=== PATIENT | female | born 1960 | race African-American/Black ===

== ENCOUNTER 2024-03-26 10:58 | Day surgery (SDC) | payer BC ==
[2024-03-26 12:27] LABS: #Basophils Less than 0.03 10x3/uL (0.0-0.2); %Basophils 0.4 % (0.0-1.0); %Eosinophils 0.8 % (0.0-10.0); %Lymphocytes 25.8 % (21.0-51.0); %Neutrophils 56.8 % (42.0-75.0); Hemoglobin 13.5 g/dL (12.0-16.0); Mean Corpuscular HGB CONC 32.1 g/dL (32.0-36.0); Mean Corpuscular Hemoglobin 31.3 pg (27.0-31.0); Mean Corpuscular Volume 97.2 fL (78.0-98.0); Platelet Count 185 10x3/uL (130-400); RBC Distribution Width 13.4 % (11.5-14.5); Red Blood Cell (RBC) Count 4.32 mill/uL (4.20-5.40)
[2024-03-26 12:48] LABS: Anion Gap 14 mmol/L (10-20); BUN (Urea Nitrogen) 7 mg/dL (9.8-20.1); Calc. Creatinine Clearance 0 mL/min (70-130); Carbon Dioxide 27 mmol/L (23-31); Chloride 106 mmol/L (98-107); Potassium 4.2 mmol/L (3.5-5.1); Sodium 143 mmol/L (136-145)
[2024-03-26 12:49] LABS: Calcium 9.7 mg/dL (7.8-10.44); Estimated GFR 79; Glucose 106 mg/dL (80-115)
[2024-03-26] MEDS ORDERED: PROPOFOL 20 ML ONE ×2 (13:01→14:35)
[2024-03-26] MEDS ORDERED: EPINEPHrine 1 MG/ML VIAL ONE (13:27)
[2024-03-26] MEDS ORDERED: Bupivacaine 0.25% HCL 30 ML VIAL ONE (13:28)
[2024-03-26] MEDS ORDERED: Lidocaine 2% PF 5 ML VIAL ONE ×2 (13:28→13:32)
[2024-03-26] MEDS ORDERED: CEFAZOLIN 2 GM VIAL ONE (13:36)
[2024-03-26] MEDS ORDERED: fentaNYL PF 100 MCG/2 ML SYRINGE ONE (14:04)
[2024-03-26] MEDS ORDERED: PHENYLEPHRINE-NS 100 MCG/ML 10 ML SYRINGE ONE (14:27)
[2024-03-26] MEDS ORDERED: Ketorolac Tromethamine 30 MG (1 mL) VIAL ONE (14:27)
[2024-03-26] MEDS ORDERED: Dexamethasone 20 MG/5 ML VIAL ONE (14:35)
[2024-03-26] MEDS ORDERED: Ondansetron PF 4 MG/2 ML Vial ONE (14:35)
[2024-03-26] MEDS ORDERED: fentaNYL 50 mcg/mL 1 mL Vial ONE (15:04)
== END 2024-03-26 16:37 | disposition home or self-care (01) ==
LOC: SDC 10:58
PROVIDERS: ATTEND Surgery
PROC: 0JH63WZ Insertion of Totally Implantable Vascular Access Device into Chest Subcutaneous Tissue and Fascia, Percutaneous Approach (ICD-10-PCS; principal; 2024-03-26)
DX: C78.5 Secondary malignant neoplasm of large intestine and rectum (principal); C34.90 Malignant neoplasm of unspecified part of unspecified bronchus or lung; F41.9 Anxiety disorder, unspecified
CPT/HCPCS: 71045; 80048; 85025; C1788; J0171; J0665; J1100; J1642; J1885; J2405; J2704; J3010

== ENCOUNTER 2024-04-29 15:10 | Emergency (ER) | payer BC ==
[2024-04-29] MEDS ORDERED: Ondansetron PF 4 MG/2 ML Vial ONE (16:27)
[2024-04-29 16:32] LABS: #Basophils Less than 0.03 10x3/uL (0.0-0.2); #Eosinophils Less than 0.03 10x3/uL (0.0-0.7); %Basophils 0.6 % (0.0-1.0); %Eosinophils 0.6 % (0.0-10.0); %Lymphocytes 32.7 % (21.0-51.0); %Monocytes 6.8 % (0.0-10.0); %Neutrophils 58.1 % (42.0-75.0); Hematocrit 38.9 % (36.0-47.0); Hemoglobin 13.2 g/dL (12.0-16.0); Mean Corpuscular HGB CONC 33.9 g/dL (32.0-36.0); Mean Corpuscular Hemoglobin 30.7 pg (27.0-31.0); Mean Corpuscular Volume 90.5 fL (78.0-98.0); Platelet Count 130 10x3/uL (130-400); RBC Distribution Width 13.9 % (11.5-14.5)
[2024-04-29 16:37] LABS: INR-International Normal Ratio 1.1; PTT 27.5 sec (22.9-36.1); Prothrombin Time 14.6 sec (12.0-14.7)
[2024-04-29 16:47] LABS: ALT (SGPT) 17 U/L (8-55); AST (SGOT) 23 U/L (5-34); Albumin 3.4 g/dL (3.4-4.8); Alkaline Phosphatase 96 U/L (40-110); Anion Gap 15 mmol/L (10-20); BUN (Urea Nitrogen) 9 mg/dL (9.8-20.1); Bilirubin, Total 0.6 mg/dL (0.2-1.2); Calc. Creatinine Clearance 0 mL/min (70-130); Calcium 9.1 mg/dL (7.8-10.44); Carbon Dioxide 24 mmol/L (23-31); Chloride 105 mmol/L (98-107); Estimated GFR 81; Globulin 3.3 g/dL (2.4-3.5); Glucose 112 mg/dL (80-115); Potassium 4.2 mmol/L (3.5-5.1); Protein, Total 6.7 g/dL (5.8-8.1); Sodium 140 mmol/L (136-145)
[2024-04-29] MEDS ORDERED: Lidocaine/Transparent Dressing 1 EACH KIT ONE (16:50)
[2024-04-29] MEDS ORDERED: Apixaban 5 MG TAB ONE (17:33)
== END 2024-04-29 17:41 | disposition home or self-care (01) ==
LOC: ERS 15:10
DX: I82.412 Acute embolism and thrombosis of left femoral vein (principal); I82.432 Acute embolism and thrombosis of left popliteal vein; I82.492 Acute embolism and thrombosis of other specified deep vein of left lower extremity
CPT/HCPCS: 36415; 80053; 85025; 85610; 85730; J2405

== ENCOUNTER 2024-09-16 09:02 | Outpatient (CLI) | payer BC | END 2024-09-16 09:03 | disposition home or self-care (01) | LOC: ULT 09:02 | PROVIDERS: ATTEND Internal Medicine | DX: C18.6 Malignant neoplasm of descending colon (principal); N85.2 Hypertrophy of uterus; D25.9 Leiomyoma of uterus, unspecified | CPT/HCPCS: 76856; 93976 ==

== ENCOUNTER 2025-01-06 12:06 | Inpatient (IN) | payer MEDICARE ==
[2025-01-06 13:28] LABS: #Basophils Less than 0.03 10x3/uL (0.0-0.2); #Eosinophils Less than 0.03 10x3/uL (0.0-0.7); #Monocytes 0.24 10x3/uL (0.11-0.59); #Neutrophils 3.11 10x3/uL (1.40-6.50); %Basophils 0.3 % (0.0-1.0); %Eosinophils 0.2 % (0.0-10.0); %Lymphocytes 42.4 % (21.0-51.0); %Monocytes 4.0 % (0.0-10.0); %Neutrophils 52.3 % (42.0-75.0); Hematocrit 38.0 % (36.0-47.0); Hemoglobin 12.1 g/dL (12.0-16.0); Mean Corpuscular Hemoglobin 31.5 pg (27.0-31.0); Mean Corpuscular Volume 99.0 fL (78.0-98.0); Platelet Count 97 10x3/uL (130-400); Red Blood Cell (RBC) Count 3.84 mill/uL (4.20-5.40); White Blood Cell (WBC) Count 5.95 10x3/uL (4.8-10.8)
[2025-01-06 13:33] LABS: ALT (SGPT) 12 U/L (Less than 34); AST (SGOT) 27 U/L (11-34); Albumin 3.1 g/dL (3.1-4.5); Alkaline Phosphatase 80 U/L (40-110); Anion Gap 17 mmol/L (10-20); BUN (Urea Nitrogen) 15 mg/dL (9.8-20.1); Bilirubin, Total 1.4 mg/dL (0.3-1.2); Calc. Creatinine Clearance 0 mL/min (70-130); Calcium 9.1 mg/dL (7.8-10.44); Carbon Dioxide 21 mmol/L (23-31); Chloride 107 mmol/L (98-107); Globulin 2.9 g/dL (2.4-3.5); Glucose 155 mg/dL (80-115); Magnesium 2.1 mg/dL (1.6-2.6); Potassium 3.6 mmol/L (3.5-5.1); Sodium 141 mmol/L (136-145)
[2025-01-06 14:28] LABS: Anisocytosis SLIGHT = 6-15 cells HPF (0-5); Macrocytosis MODERATE=16-30 cells HPF (0-5); Ovalocytes SLIGHT = 2-5 cells HPF (0-1); Platelet Adequacy Comment Platelets Decreased; Polychromasia SLIGHT = 2-3 cells HPF (0-2)
[2025-01-06 14:58] LABS: INR-International Normal Ratio 1.2; Prothrombin Time 14.9 sec (12.0-14.7)
[2025-01-06 15:00] LABS: PTT 21.6 sec (22.9-36.1)
[2025-01-06] MEDS ORDERED: Calcium Carbonate 500 MG ChewTAB PO PRN (15:52)
[2025-01-06] MEDS ORDERED: Senokot S 8.6-50 MG TAB PO PRN (15:52)
[2025-01-06] MEDS ORDERED: Ondansetron PF 4 MG/2 ML Vial IVP PRN (15:52)
[2025-01-06] MEDS ORDERED: Acetaminophen 325 MG TAB PO PRN (15:52)
[2025-01-06] MEDS ORDERED: Electrolyte Replacement Protocol 1 EACH FS SCH (16:00)
[2025-01-06] MEDS: CEFAZOLIN IVPB SCH (16:04)
[2025-01-06] MEDS: ADMIXTURE FEE IVPB SCH (16:04)
[2025-01-06] MEDS: SODIUM CHLORIDE IVPB SCH (16:04)
[2025-01-06] MEDS: Gabapentin 300 MG CAP PO SCH (21:03)
[2025-01-07 02:08] VITALS: BMI 35.7
[2025-01-07 05:41] LABS: #Basophils Less than 0.03 10x3/uL (0.0-0.2); #Eosinophils Less than 0.03 10x3/uL (0.0-0.7); #Monocytes 0.12 10x3/uL (0.11-0.59); #Neutrophils 2.07 10x3/uL (1.40-6.50); %Basophils 0.2 % (0.0-1.0); %Eosinophils 0.2 % (0.0-10.0); %Lymphocytes 44.8 % (21.0-51.0); %Monocytes 3.0 % (0.0-10.0); %Neutrophils 51.6 % (42.0-75.0); Hematocrit 33.1 % (36.0-47.0); Hemoglobin 10.6 g/dL (12.0-16.0); Mean Corpuscular Hemoglobin 31.9 pg (27.0-31.0); Mean Corpuscular Volume 99.7 fL (78.0-98.0); Platelet Count 119 10x3/uL (130-400); Red Blood Cell (RBC) Count 3.32 mill/uL (4.20-5.40); White Blood Cell (WBC) Count 4.02 10x3/uL (4.8-10.8)
[2025-01-07 05:52] LABS: ALT (SGPT) 13 U/L (Less than 34); AST (SGOT) 21 U/L (11-34); Albumin 3.1 g/dL (3.1-4.5); Alkaline Phosphatase 74 U/L (40-110); Anion Gap 9 mmol/L (10-20); BUN (Urea Nitrogen) 14 mg/dL (9.8-20.1); Bilirubin, Total 1.3 mg/dL (0.3-1.2); Calc. Creatinine Clearance 105 mL/min (70-130); Calcium 9.0 mg/dL (7.8-10.44); Carbon Dioxide 27 mmol/L (23-31); Chloride 107 mmol/L (98-107); Globulin 2.6 g/dL (2.4-3.5); Glucose 108 mg/dL (80-115); Magnesium 2.0 mg/dL (1.6-2.6); Potassium 4.2 mmol/L (3.5-5.1); Sodium 139 mmol/L (136-145)
[2025-01-07] MEDS: Gabapentin 300 MG CAP PO SCH (08:05)
[2025-01-07] MEDS: Pantoprazole 40 MG DR.TAB PO SCH (08:05)
[2025-01-07] MEDS: Colchicine 0.6 MG TAB PO SCH (08:06)
[2025-01-07] MEDS: Magnesium 2 GM/50 ML(in water) 2 GM in Premix 1 BAG IVPB SCH (08:07)
[2025-01-07] MEDS: Citalopram 20 MG TAB PO SCH ×2 (09:05→20:53)
[2025-01-07] MEDS ORDERED: Megestrol Acetate 800 MG/20 ML UDCUP PO PRN (14:29)
[2025-01-07] MEDS ORDERED: Citalopram 20 MG TAB PO SCH (21:00)
[2025-01-08 04:39] LABS: Hematocrit 32.8 % (36.0-47.0); Hemoglobin 10.5 g/dL (12.0-16.0); Mean Corpuscular Hemoglobin 31.8 pg (27.0-31.0); Mean Corpuscular Volume 99.4 fL (78.0-98.0); Platelet Count 101 10x3/uL (130-400); Red Blood Cell (RBC) Count 3.30 mill/uL (4.20-5.40); White Blood Cell (WBC) Count 3.08 10x3/uL (4.8-10.8)
[2025-01-08 04:57] LABS: Anion Gap 12 mmol/L (10-20); BUN (Urea Nitrogen) 10 mg/dL (9.8-20.1); Calc. Creatinine Clearance 107 mL/min (70-130); Calcium 8.7 mg/dL (7.8-10.44); Carbon Dioxide 22 mmol/L (23-31); Chloride 109 mmol/L (98-107); Glucose 167 mg/dL (80-115); Magnesium 2.1 mg/dL (1.6-2.6); Potassium 3.9 mmol/L (3.5-5.1); Sodium 139 mmol/L (136-145)
[2025-01-08 05:15] LABS: Anisocytosis SLIGHT = 6-15 cells HPF (0-5); Nucleated RBC (Manual Ct) 1 % (0); Platelet Adequacy Comment Platelets Decreased; Polychromasia SLIGHT = 2-3 cells HPF (0-2)
[2025-01-08 08:04] VITALS: BP 135/74; TEMP 98.3
[2025-01-08] MEDS: Aspirin 81 mg Enteric Coated Tablet PO SCH (08:59)
== END 2025-01-08 11:42 | disposition home or self-care (01) | DRG 919 ==
LOC: ERS 12:06 → ERHOLD 15:31 → CCU 18:10 → 2NO 01-07 19:47
PROVIDERS: ADMIT Internal Medicine; ATTEND Internal Medicine
PROC: 0BBJ3ZX Excision of Left Lower Lung Lobe, Percutaneous Approach, Diagnostic (ICD-10-PCS; principal; 2025-01-06)
PROC: 3E03329 Introduction of Other Anti-infective into Peripheral Vein, Percutaneous Approach (ICD-10-PCS; 2025-01-06)
DX: I97.52 Accidental puncture and laceration of a circulatory system organ or structure during other procedure (principal); G93.41 Metabolic encephalopathy; I21.A1 Myocardial infarction type 2; J96.01 Acute respiratory failure with hypoxia; I31.4 Cardiac tamponade; I31.39 Other pericardial effusion (noninflammatory); C18.6 Malignant neoplasm of descending colon; C78.7 Secondary malignant neoplasm of liver and intrahepatic bile duct; E87.20 Acidosis, unspecified; C78.01 Secondary malignant neoplasm of right lung; C78.02 Secondary malignant neoplasm of left lung; K02.9 Dental caries, unspecified; G89.29 Other chronic pain; D64.81 Anemia due to antineoplastic chemotherapy; F41.9 Anxiety disorder, unspecified; F41.0 Panic disorder [episodic paroxysmal anxiety]; K21.9 Gastro-esophageal reflux disease without esophagitis; Y83.8 Other surgical procedures as the cause of abnormal reaction of the patient, or of later complication, without mention of misadventure at the time of the procedure; F32.A Depression, unspecified; D69.6 Thrombocytopenia, unspecified; Z87.891 Personal history of nicotine dependence; Z98.890 Other specified postprocedural states; Z93.3 Colostomy status; Z98.51 Tubal ligation status; Z86.718 Personal history of other venous thrombosis and embolism
CPT/HCPCS: 32408; 36000; 36415; 36416; 71045; 77002; 77012; 80048; 80053; 83605; 83735; 83880; 84484; 85025; 85610; 85730; 86850; 86900; 86901; 88305; 88333; 88334; 93005; 93306; 93970; 96365; 99152; 99153; 99292; J0690; J1642; J2250; J3010; J3475; J7030

== ENCOUNTER → 2025-01-06 | Day surgery (SDC) | payer MEDICARE ==
[~2025-01-06] MED LIST: Lidocaine 1% w/Epinephrine 1:100K 20 ML VIAL ONE; Sodium Bicarbonate 2.5 MEQ/5 ML SDV ONE
[2025-01-06 08:57] LABS: #Basophils Less than 0.03 10x3/uL (0.0-0.2); #Eosinophils Less than 0.03 10x3/uL (0.0-0.7); #Monocytes 0.13 10x3/uL (0.11-0.59); #Neutrophils 1.76 10x3/uL (1.40-6.50); %Basophils 0.2 % (0.0-1.0); %Eosinophils 0.5 % (0.0-10.0); %Lymphocytes 54.2 % (21.0-51.0); %Monocytes 3.1 % (0.0-10.0); %Neutrophils 41.8 % (42.0-75.0); Hematocrit 42.6 % (36.0-47.0); Hemoglobin 13.3 g/dL (12.0-16.0); Mean Corpuscular Hemoglobin 31.4 pg (27.0-31.0); Mean Corpuscular Volume 100.5 fL (78.0-98.0); Platelet Count 150 10x3/uL (130-400); Red Blood Cell (RBC) Count 4.24 mill/uL (4.20-5.40); White Blood Cell (WBC) Count 4.21 10x3/uL (4.8-10.8)
[2025-01-06 09:19] LABS: INR-International Normal Ratio 1.0; Prothrombin Time 13.6 sec (12.0-14.7)
[2025-01-06 09:20] LABS: PTT 23.5 sec (22.9-36.1)
== END ==
LOC: CT 08:22
PROVIDERS: ATTEND Internal Medicine
PROC: 0BBL3ZX Excision of Left Lung, Percutaneous Approach, Diagnostic (ICD-10-PCS; principal; 2025-01-06)
DX: R91.1 Solitary pulmonary nodule (principal); C18.6 Malignant neoplasm of descending colon
CPT/HCPCS: 32408; 36415; 36416; 71045; 77002; 77012; 85025; 85610; 85730; J2250; J3010

== ENCOUNTER 2025-02-08 08:40 | Outpatient (CLI) | payer MEDICARE ==
[2025-02-08] MEDS ORDERED: Iopamidol 370 76% 100 ML VIAL ONE (14:16)
== END 2025-02-08 08:41 | disposition home or self-care (01) ==
LOC: CT 08:40
PROVIDERS: ATTEND Internal Medicine
DX: C18.6 Malignant neoplasm of descending colon (principal); R91.8 Other nonspecific abnormal finding of lung field; K76.9 Liver disease, unspecified; I70.0 Atherosclerosis of aorta; N85.9 Noninflammatory disorder of uterus, unspecified; D25.9 Leiomyoma of uterus, unspecified; Z98.890 Other specified postprocedural states
CPT/HCPCS: 36000; 71260; 74177; Q9967

== ENCOUNTER 2025-04-13 13:23 | Outpatient (CLI) | payer OTHER | END 2025-04-13 13:24 | disposition home or self-care (01) | LOC: ULT 13:23 | PROVIDERS: ATTEND Internal Medicine | DX: C18.6 Malignant neoplasm of descending colon (principal); R91.1 Solitary pulmonary nodule; R60.0 Localized edema; M79.605 Pain in left leg; I82.412 Acute embolism and thrombosis of left femoral vein; I82.432 Acute embolism and thrombosis of left popliteal vein ==

== ENCOUNTER 2025-05-20 12:59 | Emergency (ER) | payer OTHER ==
[2025-05-20 14:34] LABS: Hematocrit 33.9 % (36.0-47.0); Hemoglobin 10.6 g/dL (12.0-16.0); Mean Corpuscular Hemoglobin 30.3 pg (27.0-31.0); Mean Corpuscular Volume 96.9 fL (78.0-98.0); Platelet Count 83 10x3/uL (130-400); Red Blood Cell (RBC) Count 3.50 mill/uL (4.20-5.40); White Blood Cell (WBC) Count 6.46 10x3/uL (4.8-10.8)
[2025-05-20 14:49] LABS: ALT (SGPT) 8 U/L (Less than 34); AST (SGOT) 12 U/L (11-34); Albumin 3.3 g/dL (3.1-4.5); Alkaline Phosphatase 211 U/L (40-110); Anion Gap 13 mmol/L (10-20); BUN (Urea Nitrogen) 5 mg/dL (9.8-20.1); Bilirubin, Total 0.6 mg/dL (0.3-1.2); Calc. Creatinine Clearance 0 mL/min (70-130); Calcium 9.3 mg/dL (7.8-10.44); Carbon Dioxide 27 mmol/L (23-31); Chloride 97 mmol/L (98-107); Globulin 3.1 g/dL (2.4-3.5); Glucose 461 mg/dL (80-115); Potassium 3.4 mmol/L (3.5-5.1); Sodium 134 mmol/L (136-145)
[2025-05-20 14:57] LABS: Anisocytosis SLIGHT = 6-15 cells HPF (0-5); Macrocytosis MODERATE=16-30 cells HPF (0-5); Ovalocytes SLIGHT = 2-5 cells HPF (0-1); Platelet Adequacy Comment Platelets Decreased; Polychromasia SLIGHT = 2-3 cells HPF (0-2); Smudge Cells 9.7 %
[2025-05-20] MEDS ORDERED: Fluconazole 100 MG TAB ONE (15:27)
== END 2025-05-20 18:18 | disposition home or self-care (01) ==
LOC: ERS 12:59
DX: E86.0 Dehydration (principal); B37.0 Candidal stomatitis; R73.9 Hyperglycemia, unspecified; F17.210 Nicotine dependence, cigarettes, uncomplicated
CPT/HCPCS: 80053; 85025; 96360; 96361